=== PATIENT | male | born 2000 | race Caucasian/White ===

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

== ENCOUNTER 2021-01-20 20:13 | Emergency (ER) | payer BC ==
[2021-01-20 20:35] VITALS: BP 105/69; PULSE 80
[2021-01-20] MEDS ORDERED: Sodium Chloride 0.9% 10 ML Syringe FLUSH PRN (20:44)
[2021-01-20] MEDS ORDERED: Ondansetron 4 MG/2 ML SDV IVPUSH ONE (20:45)
[2021-01-20] MEDS ORDERED: Sodium Chloride 0.9% 1,000 ML IV ONE (20:45)
[2021-01-20] MEDS ORDERED: LORazepam 2 MG/ML SDV IVPUSH ONE (20:45)
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
--- NOTE | 2021-01-21 07:10 | CT ---
Head CT Technique: Multiple axial sections through the brain were obtained. Intravenous contrast was not utilized. Reconstructed coronal and sagittal images were obtained. Comparison: No prior intracranial imaging is available. Findings: Ventricles along with basal cisterns and sulci over the convexities are within normal limits for the patient's age. No abnormal parenchymal densities are seen. No evidence of intracranial hemorrhage is seen. No midline shift or mass-effect is seen. Visualized mastoid sinuses and paranasal sinuses show nothing acute. No acute calvarial abnormality is seen. Soft tissue swelling is noted around the right orbit. Impression: 1. Soft tissue swelling is seen around the right orbit. 2. No acute intracranial abnormality is seen. Diagnostic code #3 I agree with preliminary report from [facility], finalized on 01/20/21, 10:25 PM WATCH SUPERVISOR, code 1
--- NOTE | 2021-01-21 07:15 | CT ---
CT facial bones Technique: Multiple axial sections through the facial bones were obtained. Intravenous contrast was not utilized. Reconstructed coronal and sagittal images were obtained. Findings: Soft tissue swelling is seen around the right orbit. Right and left globes are symmetric in size. No retrobulbar abnormality is seen. Extraocular muscles and optic nerves are symmetric. Visualized sinuses show nothing acute. No fracture is seen. Impression: 1. Soft tissue swelling around the right orbit. 2. No acute osseous abnormality is seen. Diagnostic code #2 I agree with preliminary report from [facility], finalized on 01/20/21, 10:23 PM ACETYLENE CUTTER, code 1
== END 2021-01-20 22:28 | disposition home or self-care (01) ==
LOC: JD.ED 20:13
DX: S01.111A Laceration without foreign body of right eyelid and periocular area, initial encounter (principal); F10.129 Alcohol abuse with intoxication, unspecified; Y90.5 Blood alcohol level of 100-119 mg/100 ml; W22.8XXA Striking against or struck by other objects, initial encounter
CPT/HCPCS: 12011; 36415; 70450; 70486; 80053; 80307; 85025; 96374; 96375; 99284; J2060; J2405; J7030

== ENCOUNTER 2021-08-14 10:35 | Emergency (ER) | payer BC, MEDICAID ==
[2021-08-14 11:11] VITALS: BP 130/75; PULSE 60
== END 2021-08-14 12:20 | disposition home or self-care (01) ==
LOC: JD.ED 10:35
DX: S60.221A Contusion of right hand, initial encounter (principal); Y04.0XXA Assault by unarmed brawl or fight, initial encounter
CPT/HCPCS: 73130-26-RT; 73130-RT; 99282; 99283

== ENCOUNTER 2021-08-26 02:11 | Emergency (ER) | payer BC, MEDICAID ==
[2021-08-26] MEDS ORDERED: Sodium Chloride 0.9% 10 ML Syringe FLUSH PRN (02:21)
[2021-08-26 02:30] VITALS: BP 134/74; PULSE 97
[2021-08-26] MEDS ORDERED: Sodium Chloride 0.9% 1,000 ML IV SCH (02:30)
[2021-08-26 03:14] LABS: ESTIMATED GFR 99 mL/min (>60)
== END 2021-08-26 05:27 | disposition home or self-care (01) ==
LOC: JD.ED 02:11
DX: R41.82 Altered mental status, unspecified (principal); F10.120 Alcohol abuse with intoxication, uncomplicated; Z86.16 Personal history of COVID-19; Y90.1 Blood alcohol level of 20-39 mg/100 ml
CPT/HCPCS: 36415; 80053; 80307; 85025; 96360; 99284; J3490; J7030; 99285

== ENCOUNTER 2022-12-12 10:21 | Day surgery (SDC) | payer BC, MEDICAID ==
[~2022-12-12 10:21] MED LIST: Lactated Ringers 1,000 ML IV SCH; Sodium Chloride 0.9% 10 ML Syringe FLUSH PRN; Sodium Chloride 0.9% 10 ML Syringe FLUSH SCH
[2022-12-12] MEDS ORDERED: fentaNYL 100 MCG/2 ML SDV ONE (11:23)
[2022-12-12] MEDS ORDERED: Propofol 200 MG/20 ML SDV ONE (11:23)
[2022-12-12] MEDS ORDERED: Midazolam 1 MG/ML 2 ML SDV ONE (11:24)
[2022-12-12] MEDS ORDERED: Lidocaine 1% 20 ML MDV ONE (11:35)
[2022-12-12] MEDS ORDERED: Bupivacaine 0.5% 10 ML SDV ONE (11:36)
[2022-12-12] MEDS ORDERED: Ketorolac 15 MG/ML SDV ONE (12:11)
[2022-12-12 13:48] VITALS: BP 116/68; PULSE 70
== END 2022-12-12 13:07 | disposition home or self-care (01) ==
LOC: JD.SDS 10:21
PROVIDERS: ATTEND Specialist
DX: L72.0 Epidermal cyst (principal); F90.9 Attention-deficit hyperactivity disorder, unspecified type; F41.9 Anxiety disorder, unspecified; F32.A Depression, unspecified; J45.20 Mild intermittent asthma, uncomplicated; Z72.0 Tobacco use
CPT/HCPCS: 11442; J1885; J2250; J2704; J3010; J3490; J7120; 00300

== ENCOUNTER 2024-08-19 06:30 | Emergency (ER) | payer BC ==
[2024-08-19] MEDS: Ondansetron 4 MG/2 ML SDV ONE (06:42)
[2024-08-19] MEDS: Ketorolac 30 MG/ML SDV ONE (06:42)
[2024-08-19] MEDS: Sodium Chloride 0.9% 1,000 ML ONE (06:43)
[2024-08-19] MEDS: Ketorolac 30 MG/ML SDV IVPUSH ONE (06:44)
[2024-08-19] MEDS: Ondansetron 4 MG/2 ML SDV IVPUSH ONE (06:45)
[2024-08-19] MEDS: Sodium Chloride 0.9% 1,000 ML IV SCH (06:45)
[2024-08-19] MEDS ORDERED: Naloxone 0.4 MG/ML SDV IVPUSH PRN (06:48)
[2024-08-19] MEDS: fentaNYL 100 MCG/2 ML SDV IVPUSH ONE (06:51)
[2024-08-19 06:55] LABS: BASOPHILS PERCENT AUTO 0.3 % (0.0-1.0); EOSINOPHILS ABSOLUTE AUTO 0.1 K/mm3 (0.0-0.4); EOSINOPHILS PERCENT AUTO 1.2 % (0.0-6.0); HEMATOCRIT 43.9 % (42.0-52.0); HEMOGLOBIN 15.4 gm/dl (14.0-18.0); IMMATURE GRAN ABSOLUTE AUTO 0.01 K/mm3 (0.00-0.05); IMMATURE GRAN PERCENT AUTO 0.2 % (0.0-0.4); LYMPHOCYTES ABSOLUTE AUTO 2.6 K/mm3 (1.0-4.8); LYMPHOCYTES PERCENT AUTO 43.4 % (24.0-44.0); MEAN CORPUSCULAR HEMOGLOBIN 29.7 pg (28.0-32.0); MEAN CORPUSCULAR HGB CONC 35.1 g/dl (32.0-36.0); MEAN CORPUSCULAR VOLUME 84.7 fl (83.0-99.0); MEAN PLATELET VOLUME 10.3 fl (9.4-12.4); MONOCYTES ABSOLUTE AUTO 0.5 K/mm3 (0.0-0.8); MONOCYTES PERCENT AUTO 8.3 % (0.0-8.0); NEUTROPHILS ABSOLUTE AUTO 2.8 K/mm3 (1.8-7.7); NEUTROPHILS PERCENT AUTO 46.6 % (41.0-71.0); PLATELET COUNT,PLT 241 K/mm3 (150-400); RED BLOOD CELL COUNT 5.18 M/mm3 (4.52-5.90); WHITE BLOOD CELL COUNT,WBC 5.92 K/mm3 (3.9-11.3)
[2024-08-19 07:05] LABS: A/G RATIO 1.5 (1-2); ALBUMIN 4.2 g/dl (3.4-5.0); ANION GAP 14.5 (5-15); BILIRUBIN TOTAL 0.6 mg/dL (0.2-1.0); BUN/CREATININE RATIO 19.2 (14-18); CALCIUM 9.6 mg/dL (8.5-10.1); CREATININE 1.3 mg/dL (0.7-1.3); EST CRCL DRUG DOSING (CG) 94.13 mL/min; POTASSIUM,K 3.5 mEq/L (3.5-5.1)
[2024-08-19 09:17] LABS: APPEARANCE,URINE CLEAR (Clear); BILIRUBIN,URINE NEGATIVE (Negative); COLOR,URINE YELLOW (Yellow); GLUCOSE,URINE NEGATIVE (Negative); KETONES,URINE NEGATIVE (Negative); LEUKOCYTE ESTERASE,URINE NEGATIVE (Negative); NITRITE,URINE NEGATIVE (Negative); OCCULT BLOOD,URINE 3+ (Negative); PROTEIN,URINE TRACE (Negative); UROBILINOGEN,URINE 0.2 (0.2-1.0)
[2024-08-19 09:34] LABS: BACTERIA,URINE FEW /hpf (FEW); MUCUS,URINE FEW /hpf (FEW); RBC,URINE 50-75 /hpf (0-5); WBC,URINE 0-5 /hpf (0-5)
[2024-08-19 10:00] VITALS: BP 125/74; PULSE 60
== END 2024-08-19 09:50 | disposition home or self-care (01) ==
LOC: JD.ED 06:30
DX: N13.2 Hydronephrosis with renal and ureteral calculous obstruction (principal); Z86.16 Personal history of COVID-19
CPT/HCPCS: 36415; 74176; 80053; 80307; 81001; 85025; 96361; 96374; 96375; 99284; J1885; J2405; J3010; J7030